=== PATIENT | male | born 1965 | race Caucasian/White ===

== ENCOUNTER 2018-01-16 05:29 | Emergency (ER) | payer OTHER, MEDICAID ==
[2018-01-16] MEDS: ACETAMINOPHEN 325 MG TAB PO (06:56)
[2018-01-16] MEDS: SOD CHLORIDE 0.9% 1,000 ML IV (06:56)
[2018-01-16 07:00] LABS: ADD MAN DIFF? NO
[2018-01-16 07:02] LABS: WHITE BLOOD COUNT 10.7 10^3/ul (4.8-10.8)
[2018-01-16 07:02] LABS: BASOPHILS % 0.3 % (0.0-2.0); EOSINOPHILS % 0.2 % (0.0-7.0); HEMATOCRIT 41.3 % (42.0-52.0); LYMPHOCYTES % 9.4 % (15.0-51.0); MEAN CORPUSCULAR HEMOGLOBIN 32.3 pg (29.0-33.0); MEAN CORPUSCULAR HGB CONC 33.9 g/dl (32.0-37.0); MEAN CORPUSCULAR VOLUME 95.4 fl (82.0-101.0); MEAN PLATELET VOLUME 9.2 fl (7.4-10.4); MONOCYTE # 1.1 10^3/ul (0.3-0.9); MONOCYTES % 10.2 % (0.0-11.0); NEUTROPHIL # 8.5 10^3/ul (1.6-7.5); NEUTROPHILS % 79.3 % (39.0-77.0); PLATELET COUNT 146 10^3/UL (140-415); RED BLOOD COUNT 4.33 10^6/ul (4.70-6.10); RED CELL DISTRIBUTION WIDTH 13.1 % (11.5-14.5)
[2018-01-16 07:20] LABS: ANION GAP 16 (8-16); BLOOD UREA NITROGEN 10 mg/dl (7-20); CALCIUM 8.1 mg/dl (8.4-10.2); CARBON DIOXIDE 24 mmol/L (21-31); CHLORIDE 105 mmol/L (97-110); CREATININE 0.85 mg/dl (0.61-1.24); GLUCOSE 118 mg/dl (70-220); POTASSIUM 3.3 mmol/L (3.5-5.1); SODIUM 142 mmol/L (135-144)
[2018-01-16 07:22] LABS: ETHANOL < 10.0 mg/dl
[2018-01-16 07:33] LABS: INR 1.23; PROTIME 15.7 Sec (11.9-14.9); PT RATIO 1.2
[2018-01-16] MEDS: KETOROLAC 15 MG INJ IV (08:15)
[2018-01-16] MEDS: METOCLOPRAMIDE 10 MG INJ IV (08:15)
[2018-01-16] MEDS: DIPHENHYDRAMINE 50 MG INJ IV (08:16)
== END 2018-01-16 09:55 | disposition home or self-care (01) ==
LOC: FTE 05:29 → E/R 09:55
DX: S06.0X1A Concussion with loss of consciousness of 30 minutes or less, initial encounter (principal); E87.6 Hypokalemia; R00.0 Tachycardia, unspecified; F15.10 Other stimulant abuse, uncomplicated; R55 Syncope and collapse; J44.9 Chronic obstructive pulmonary disease, unspecified; I50.9 Heart failure, unspecified; I10 Essential (primary) hypertension; F17.210 Nicotine dependence, cigarettes, uncomplicated; W22.8XXA Striking against or struck by other objects, initial encounter; Y92.9 Unspecified place or not applicable
CPT/HCPCS: 36415; 70450; 71045; 80048; 80307; 85025; 85610; 93005; 96374; 96375; 99285-25

== ENCOUNTER 2018-04-11 14:31 | Emergency (ER) | payer SELFPAY, OTHER | END 2018-04-11 16:24 | disposition left against medical advice (07) | LOC: FTE 14:31 | DX: K40.90 Unilateral inguinal hernia, without obstruction or gangrene, not specified as recurrent (principal); I50.9 Heart failure, unspecified; J44.9 Chronic obstructive pulmonary disease, unspecified; I10 Essential (primary) hypertension; Z87.891 Personal history of nicotine dependence | CPT/HCPCS: 99283 ==